=== PATIENT | male | born 1980 | race Two or more races ===

== ENCOUNTER 2025-01-07 19:54 | Emergency (ER) | payer MEDICAID, OTHER ==
[~2025-01-07] VITALS: Ht 180.3 cm; Wt 72.7 kg
[2025-01-07 20:16] LABS: Basophils # (auto) 0.1 10 ^3/uL (0-0.2); Basophils % (auto) 1.4 % (0.0-2.0); Eosinophils # (auto) 0.5 10 ^3/uL (0-0.8); Eosinophils % (auto) 7.7 % (0.0-7.0); Hematocrit 34.2 % (41.0-53.0); Hemoglobin 11.4 g/dL (13.5-17.5); Lymphocytes # (auto) 1.5 10 ^3/uL (0.4-5.4); Lymphocytes % (auto) 25.3 % (10.0-50.0); Mean Corpuscular Hemoglobin 29.1 pg (28.0-32.0); Mean Corpuscular Hgb Conc. 33.5 g/dL (32.0-36.0); Mean Corpuscular Volume 86.9 fL (80.0-100.0); Monocytes # (auto) 0.7 10 ^3/uL (0-1.3); Monocytes % (auto) 11.8 % (0.0-12.0); Neutrophils # (auto) 3.2 10 ^3/uL (1.6-8.6); Neutrophils % (auto) 53.8 % (37.0-80.0); Platelet Count (auto) 289 10^3/uL (140-450); Red Blood Cells 3.93 10^6/uL (4.5-5.90); Red Cell Distribution Width 16.2 % (11.8-14.3); White Blood Cell 5.9 10^3/uL (4.4-10.8)
--- NOTE | 2025-01-07 20:16 | ED.PDOC ---
Psychiatric HPI Comments 44-year-old male came to ER via EMS for mental health issues. Patient has history of schizophrenia, recently discharged at [facility] last Jan 03, and patient hasnt taken his psyche meds since then. Patient left his rehab home, was seen wandering around. Patient believes in government conspiracies, thinks the government is out to catch him and torture him. He admits to have auditory hallucinations, in his been having thoughts of harming himself as well. Chief Complaint: Mental Health Time Seen by MD: 20:14 Reviewed Notes: Travel Guide Notes Information Source: Patient, Emergency Med Personnel Mode of Arrival: EMS Severity: Unable to Care for Self, Unable to Control Self Severity of Pain: Moderate Severity of Mental Status: Moderate Severity of Symptoms: Moderate Timing: Hours Duration: Intermittent Presents with: Anxiety, Unclear Thinking, Bizarre Behavior, Suicidal Ideation Circumstance: Medical Clearance, Causing a Disturbance History of: Schizophrenia Associated signs and symptoms: Hopeless, Anxiety, Anger, Hallucinations, Confusion Review of Systems REVIEW OF SYSTEMS: No fever, no chills, or fatigue HEENT: No sore throat, no earache, no congestion, no neck pain. Cardiac: No chest pain. No palpitations. Lungs: No shortness of breath, no cough. GI: No nausea, no vomiting, no diarrhea, no constipation, no abdominal pain : No dysuria, frequency, or urgency. No hematuria. Musculoskeletal: No joint pain , no joint swelling, no extremity edema. Skin: No rash, no itching. Neuro: No headache, no dizziness, no weakness Vital Signs Vital Signs Date Time Temp Pulse Resp B/P (MAP) Pulse Ox O2 Delivery O2 Flow Rate FiO2 01/07/25 21:48 87 16 99 Room Air* 0 21 01/07/25 21:47 98.4 122/75 (91) 98.4 Physical Exam General: Awake, alert and oriented. No acute distress. Skin: Skin in warm, dry and intact without rashes or lesions. HEENT: The head is normocephalic and atraumatic. Conjunctivae are clear without exudates or hemorrhage. Sclera is non-icteric. Neck: Normal range of motion. No JVD. Cardiac: Regular rate Respiratory: No signs of respiratory distress. No Stridor. Extremities: Upper and lower extremities are atraumatic in appearance without tenderness or deformity. Neurological: The patient is awake, alert and oriented to person, place, and time with normal speech. Speech is clear. There is no facial asymmetry. Psychiatric: Anxious affect. Rapid, pressured, tangential speech. Reporting auditory hallucinations. Past Medical History PAST MEDICAL HISTORY: Schizophrenia Surgical History: Denies all surgeries Family History Family History: Reviewed,noncontributory to illness Social History Smoker: Non-Smoker Alcohol: Denies ETOH Use Drugs: Denies Drug Use Lives In: Other (Rehab home) Was a procedure done? Was a procedure done?: No Psych Differential Dx Psych. Differential Dx: Anxiety, Depression, Hopeless, Panic Disorder, Schizoprenia, Suicidal X-Ray, Labs, Meds, VS Vital Signs Date Time Temp Pulse Resp B/P (MAP) Pulse Ox O2 Delivery O2 Flow Rate FiO2 01/07/25 21:48 87 16 99 Room Air* 0 21 01/07/25 21:47 98.4 87 16 122/75 (91) 99 98.4 01/07/25 20:01 98.4 87 16 122/75 (91) 99 Lab Test 01/08/25 04:41 01/07/25 20:07 Range/Units Urine Color Colorless Yellow Urine Clarity Clear Clear Urine pH 7.0 5.0-9.0 Urine Specific [place] 1.006 1.001-1.035 Urine Protein Negative Negative Urine Ketones Negative Negative Urine Blood Negative Negative /uL Urine Nitrite Negative Negative Urine Bilirubin Negative Negative Urine Urobilinogen Normal Negative mg/dL Urine Leukocyte Esterase Negative Negative /uL Urine RBC <1 0 - 3 /hpf Urine Microscopic WBC 1 0-3 /HPF Urine Squamous Epithelial Cells Few <5 /hpf Urine Bacteria None seen None Seen /hpf Urine Glucose Normal Normal mg/dL Urine Opiates Screen Neg NEGATIVE Urine Fentanyl Screen Neg NEGATIVE Urine Barbiturates Screen Neg NEGATIVE Urine Phencyclidine Screen Neg NEGATIVE Urine Amphetamines Screen Neg NEGATIVE Urine Benzodiazepines Screen Neg NEGATIVE Urine Cocaine Screen Neg NEGATIVE Urine Cannabinoids Screen Neg NEGATIVE White Blood Count 5.9 4.4-10.8 10^3/uL Red Blood Count 3.93 L 4.5-5.90 10^6/uL Hemoglobin 11.4 L 13.5-17.5 g/dL Hematocrit 34.2 L 41.0-53.0 % Mean Corpuscular Volume 86.9 80.0-100.0 fL Mean Corpuscular Hemoglobin 29.1 28.0-32.0 pg Mean Corpuscular Hemoglobin Concent 33.5 32.0-36.0 g/dL Red Cell Distribution Width 16.2 H 11.8-14.3 % Platelet Count 289 140-450 10^3/uL Mean Platelet Volume 7.9 6.9-10.8 fL Neutrophils (%) (Auto) 53.8 37.0-80.0 % Lymphocytes (%) (Auto) 25.3 10.0-50.0 % Monocytes (%) (Auto) 11.8 0.0-12.0 % Eosinophils (%) (Auto) 7.7 H 0.0-7.0 % Basophils (%) (Auto) 1.4 0.0-2.0 % Neutrophils # (Auto) 3.2 1.6-8.6 10 ^3/uL Lymphocytes # (Auto) 1.5 0.4-5.4 10 ^3/uL Monocytes # (Auto) 0.7 0-1.3 10 ^3/uL Eosinophils # (Auto) 0.5 0-0.8 10 ^3/uL Basophils # (Auto) 0.1 0-0.2 10 ^3/uL Nucleated Red Blood Cells 0.0 % Sodium Level 138 136-145 mmol/L Potassium Level 3.9 3.5-5.1 mmol/L Chloride Level 102 98-107 mmol/L Carbon Dioxide Level 31 20-31 mmol/L Anion Gap 5 5-15 Blood Urea Nitrogen 13 9-23 mg/dL Creatinine 0.78 0.700-1.30 mg/dL Glomerular Filtration Rate Calc 111 >90 mL/min BUN/Creatinine Ratio 16.7 10.0-20.0 Serum Glucose 98 74-106 mg/dL Calcium Level 9.2 8.7-10.4 mg/dL Total Bilirubin 0.2 0.2-1.0 mg/dL Aspartate Amino Transferase (AST) 23 13-40 U/L Alanine Aminotransferase (ALT) 15 7-40 U/L Alkaline Phosphatase 118 H 46-116 U/L Total Protein 7.4 5.7-8.2 g/dL Albumin 4.4 3.2-4.8 g/dL Plasma/Serum Blood Alcohol < 3.0 <10 mg/dL Current Medications Medications (Trade) Dose Ordered Sig/To Route Start Time Stop Time Status Last Admin Haloperidol Lactate (Haldol) 5 mg ONCE ONCE IM 01/07/25 20:00 01/07/25 20:01 DC 01/07/25 20:26 Lorazepam (Ativan Inj) 2 mg ONCE ONCE IM 01/07/25 20:00 01/07/25 20:01 DC 01/07/25 20:25 Olanzapine (ZyPREXA Tablet) 5 mg ONCE ONCE PO 01/08/25 00:33 01/08/25 00:51 DC 01/08/25 01:07 Time of 1ST Reevaluation: 20:10 Reevaluation 1ST: Unchanged Patient Education/Counseling: Diagnosis, Treatment Family Education/Counseling: No Family Present Departure 1 Departure Time of Disposition: 01:14 Impression: Primary Impression: Schizophrenia [facility] Condition: Stable Comments 44-year-old male with history of schizophrenia who presents to the ED with severe delusional symptoms, hallucinations and statements of suicidal ideation. Patient medicated on arrival to the ED. Labs, urinalysis, UDS ordered. Psychiatric consult placed. Patient evaluated by Dr. Oates (psychiatry) recommendation is inpatient psychiatric admission for safety, psychiatric stabilization and possible medication initiation/optimization as well as starting olanzapine 5 mg b.i.d. 1st dose now. Signed out to Dr. Shoemaker Pending transfer. Critical Care Note Critical Care Time?: No Stability Stability form required: No Heart Score Heart Score: Heart Score Response (Comments) Value History N/A 0 EKG N/A 0 Age N/A 0 Risk Factors N/A 0 Troponin N/A 0 Total 0 I personally scribed for MYNOR MUHAMMAD MD ([email or web address]) on 01/07/25 at 20:16. Electronically submitted by Matthew Watters ([facility]). MYNOR MUHAMMAD MD Jan 07, 2025 20:16
[2025-01-07] MEDS: LORazepam 2MG/ML-1ML VIAL IM ONE (20:25)
[2025-01-07] MEDS: HALOPERIDOL LACTATE 5 MG/ML INJ VIAL IM ONE (20:26)
[2025-01-07 20:32] LABS: Alanine Aminotransferase 15 U/L (7-40); Albumin 4.4 g/dL (3.2-4.8); Alkaline Phosphatase 118 U/L (46-116); Anion Gap 5 (5-15); Aspartate Aminotransferase 23 U/L (13-40); BUN/Creatinine Ratio 16.7 (10.0-20.0); Blood Alcohol < 3.0 mg/dL (<10); Blood Urea Nitrogen 13 mg/dL (9-23); Calcium 9.2 mg/dL (8.7-10.4); Carbon Dioxide 31 mmol/L (20-31); Chloride 102 mmol/L (98-107); Glucose 98 mg/dL (74-106); Potassium 3.9 mmol/L (3.5-5.1); Sodium 138 mmol/L (136-145); Total Protein 7.4 g/dL (5.7-8.2)
[2025-01-07 20:33] LABS: Bilirubin, Total 0.2 mg/dL (0.2-1.0)
[2025-01-07 21:48] VITALS: PULSE 87; RESP 16; O2SAT 99
--- NOTE | 2025-01-08 00:33 | DVHINCON2 ---
Date of Service if different f: Jan 07, 2025 Time of Service: 23:06 Consult Consult Note PSYCHIATRY ED NEW CONSULT HPI: 44 yo M pt with PPH of depression and schizophrenia presents to ED BIBA for safety, psychiatric stabilization and possible med initiation/optimization in setting of homelessness, med noncompliance, depression, paranoia, and passive SI. Psychiatry consulted for safety evaluation and recommendations in context of current presentation Per pt, p/w moderate thought disorder, confusion, disorganized speech, disorganized TP, paranoia of being persecuted by various govt agencies, RTIS, impaired reality testing, delusional, poor sleep, anxiety, possible decline in self care, passive SI, and NC/NT AVH. 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 Of note, pt recently discharged from [facility] on 01/03 to rehab facility but pt has been med noncompliant and left rehab voluntarily hence is currently homeless/unsheltered Pt currently does not have psychiatrist/therapist out in community although has sought outpt MH services in past. Currently rx'd several antipsychotics pt could not recall and could not confirm on CR but has been noncompliant for past week - appears pt has long hx of med noncompliance and tx non-adherence. Denies ETOH, THC or [employer]. Never , no children, unemployed/SSI, chronically homeless, no support system noted. Unknown trauma hx. Unknown FH. No acute medical issues, hx of seizures/TBI, or recent head injuries, NKDA Does not have hx of suicide attempts/SIB/PSG although multiple prior psych hospitalizations for psychosis. Does not have access to firearms. Currently endorses passive SI/AVH MSE: General Appearance/Behavior: Alert and partially awake; appears bit older stated age, marginal/poor grooming and hygiene; calm and cooperative, intermittent eye contact Speech: not overly spontaneous, incoherent at times Thought Process: impoverished, poverty of thought Thought Content: Abnormal Thoughts and Perceptions: possibly Homicidality / Violent Thoughts: None presently (expressed HI earlier during admission) Suicidality: passive SI Hallucinations: + AVH Delusions:+ persecutory delusions Obsessions /compulsions : None Judgment and Insight: marginal/limited Mood & Affect: "tired" with mood-congruent, appropriate Orientation: oriented to person, place, time Assessment: 44 yo M pt with PPH of depression and schizophrenia presents to ED BIBA for safety, psychiatric stabilization and possible med initiation/optimization in setting of homelessness, med noncompliance, depression, paranoia, and passive SI Pt is currently expressing some SI and psychosis with moderate interference in daily functioning. Not on any psychotropics which maybe contributing to current symptoms. No outpt MH services at present. Recent inpt psych hospitalization for similar symptoms. Pt agrees to talk with staff instead of acting on any suicidal feelings while in ED. Pt medically cleared. Thus, acute risk is moderate and hence is appropriate for inpatient psychiatry admission. Pt will benefit from inpatient psychiatric admission for safety, psychiatric stabilization and possible medication initiation/optimization. Pt willing to transfer to inpt psych hospitalization voluntarily. Consider 5150 hold for DTS ONLY if needed for transfer or if no voluntary beds are available Primary Diagnosis: Schizophrenia, CUT Recommend vol transfer to inpt psych facility for higher level of care per pts request 1:1 sitter is recommended Recommend starting Olanzapine 5 mg bid - first dose now Risks/benefits/alternative treatments discussed, informed consent provided by pt If patient later refuses voluntary hospitalization/ requests to be discharged from ED prior to transfer or if no voluntary beds are available, please pt on 5150 DTS hold. Pt verbalized understanding and is receptive to above tx plan This case was discussed with ED nurse/provider and all parties in agreement with above tx plan Denzel Oates MD Plan discussed with: Patient DENZEL OATES MD Jan 08, 2025 00:33
[2025-01-08] MEDS: OLANZapine 5 MG TAB PO ONE (01:07)
[2025-01-08 04:45] LABS: Urine Bacteria None Seen /hpf (None Seen)
[2025-01-08 04:49] LABS: Urine Blood Negative /uL (Negative); Urine Clarity Clear (Clear); Urine Color Colorless (Yellow); Urine Protein, UAD Negative (Negative); Urine Specific Gravity 1.006 (1.001-1.035); Urine Squamous Epithelial Cell FEW /hpf (<5); Urine Urobilinogen Normal (Negative); Urine WBC 1 /HPF (0-3)
[2025-01-08 05:24] LABS: Amphetamine Screen, Urine Neg (NEGATIVE); Barbiturate Scree,Urine Neg (NEGATIVE); Benzodiazephine Screen, Urine Neg (NEGATIVE); Cannabinoid Screen, Urine Neg (NEGATIVE); Cocaine Screen, Urine Neg (NEGATIVE); Opiate Scree,Urine Neg (NEGATIVE); Phencyclidine Screen, Urine Neg (NEGATIVE)
[2025-01-08 07:30] VITALS: PULSE 72; RESP 16; O2SAT 99
--- NOTE | 2025-01-08 07:51 | ED.PDOC ---
Departure 1 Departure Time of Disposition: 07:50 (Patient is medically cleared. Patient was requesting to leave however outpatient re-evaluated by psychiatry and possibly placed on a hold.) Impression: Primary Impression: Schizophrenia Qualified Codes: F20.9 - Schizophrenia, unspecified Additional Impression: Psychosis Qualified Codes: F29 - Unspecified psychosis not due to a substance or known physiological condition Disposition: [facility] Condition: Serious BERENICE EDWARDS MD Jan 08, 2025 07:51
--- NOTE | 2025-01-08 08:22 | DVHINCON2 ---
Date of Service if different f: Jan 08, 2025 Consultation (LESVIA) Progress: Better Labs Laboratory Tests Test 01/07/25 20:07 01/08/25 04:41 White Blood Count 5.9 10^3/uL (4.4-10.8) Red Blood Count 3.93 10^6/uL (4.5-5.90) Hemoglobin 11.4 g/dL (13.5-17.5) Hematocrit 34.2 % (41.0-53.0) Mean Corpuscular Volume 86.9 fL (80.0-100.0) Mean Corpuscular Hemoglobin 29.1 pg (28.0-32.0) Mean Corpuscular Hemoglobin Concent 33.5 g/dL (32.0-36.0) Red Cell Distribution Width 16.2 % (11.8-14.3) Platelet Count 289 10^3/uL (140-450) Mean Platelet Volume 7.9 fL (6.9-10.8) Neutrophils (%) (Auto) 53.8 % (37.0-80.0) Lymphocytes (%) (Auto) 25.3 % (10.0-50.0) Monocytes (%) (Auto) 11.8 % (0.0-12.0) Eosinophils (%) (Auto) 7.7 % (0.0-7.0) Basophils (%) (Auto) 1.4 % (0.0-2.0) Neutrophils # (Auto) 3.2 10 ^3/uL (1.6-8.6) Lymphocytes # (Auto) 1.5 10 ^3/uL (0.4-5.4) Monocytes # (Auto) 0.7 10 ^3/uL (0-1.3) Eosinophils # (Auto) 0.5 10 ^3/uL (0-0.8) Basophils # (Auto) 0.1 10 ^3/uL (0-0.2) Nucleated Red Blood Cells 0.0 % Sodium Level 138 mmol/L (136-145) Potassium Level 3.9 mmol/L (3.5-5.1) Chloride Level 102 mmol/L (98-107) Carbon Dioxide Level 31 mmol/L (20-31) Anion Gap 5 (5-15) Blood Urea Nitrogen 13 mg/dL (9-23) Creatinine 0.78 mg/dL (0.700-1.30) Glomerular Filtration Rate Calc 111 mL/min (>90) BUN/Creatinine Ratio 16.7 (10.0-20.0) Serum Glucose 98 mg/dL (74-106) Calcium Level 9.2 mg/dL (8.7-10.4) Total Bilirubin 0.2 mg/dL (0.2-1.0) Aspartate Amino Transf (AST/SGOT) 23 U/L (13-40) Alanine Aminotransferase (ALT/SGPT) 15 U/L (7-40) Alkaline Phosphatase 118 U/L (46-116) Total Protein 7.4 g/dL (5.7-8.2) Albumin 4.4 g/dL (3.2-4.8) Plasma/Serum Blood Alcohol < 3.0 mg/dL (<10) Urine Color Colorless (Yellow) Urine Clarity Clear (Clear) Urine pH 7.0 (5.0-9.0) Urine Specific [place] 1.006 (1.001-1.035) Urine Protein Negative (Negative) Urine Ketones Negative (Negative) Urine Blood Negative /uL (Negative) Urine Nitrite Negative (Negative) Urine Bilirubin Negative (Negative) Urine Urobilinogen Normal mg/dL (Negative) Urine Leukocyte Esterase Negative /uL (Negative) Urine RBC <1 /hpf (0 - 3) Urine Microscopic WBC 1 /HPF (0-3) Urine Squamous Epithelial Cells Few /hpf (<5) Urine Bacteria None seen /hpf (None Seen) Urine Glucose Normal mg/dL (Normal) Urine Opiates Screen Neg (NEGATIVE) Urine Fentanyl Screen Neg (NEGATIVE) Urine Barbiturates Screen Neg (NEGATIVE) Urine Phencyclidine Screen Neg (NEGATIVE) Urine Amphetamines Screen Neg (NEGATIVE) Urine Benzodiazepines Screen Neg (NEGATIVE) Urine Cocaine Screen Neg (NEGATIVE) Urine Cannabinoids Screen Neg (NEGATIVE) Appetite: Good Side effects of medications: No Appearance: Stated age Psychomotor activity: WNL Behavioral: Cooperative Eye contact: Appropriate Speech: WNL Affect: Appropriate, Blunted Mood: Euthymic Thought processes: Linear/Goal-directed Thought content: WNL Suicidal ideations: Absent Homicidal ideations: Absent Orientation: Person, Place, Time, Situation Memory intact: Recent Intellect: Average Abstractability: WNL Concentration: Adequate Attention: Adequate Judgement: WNL Insight: Good Vitals Vital Signs Date Time Temp Pulse Resp B/P (MAP) Pulse Ox O2 Delivery O2 Flow Rate FiO2 01/07/25 21:48 87 16 99 Room Air* 0 21 01/07/25 21:47 98.4 122/75 (91) 98.4 Current medications Current Medications Medications Dose Ordered Sig/To Route Start Time Stop Time Status Last Admin Dose Admin Olanzapine 5 mg BID PO 01/08/25 10:00 Treatment plan discussed: With staff Medication adjusted: No Labs ordered: No Psychotherapy provided: No Type: Voluntary Diagnosis: Past diagnosis of schizophrenia. Assessment & Plan : 44 y/o male presents for passive SI, worsening psychosis in the context of losing housing and med non-adherence. Pt gives a reason for these below. Pt's tox screen was -ve for everything and pt was not intoxicated with alcohol either when he came in. Pt says he hasn't used drugs in a long time. He was in some kind of [facility] where psych meds were outlawed and he had to throw his meds away. 4 days into it he started to experience his symptoms returning and he left there in search of help. After having gotten a dose of haldol and ativan IM and zyprexa PO last night, the pt says he feels much better and can think straight, was able to get a good nights sleep, denies SI, HI and AVH. Pt is future oriented and detailed his plans to work with SW and his OP clinic at [facility] to access psych follow-up, meds and housing resources. Based on this eval, the pt appears to be a low risk for harm to self or others and is not psychotic so can be discharged to his own cognizance if medically cleared. Case D/w ED MD who has agreed to re-prescribe the pt's meds based on the info he has in his belongings (Pt doesn't remember the dosages of the meds he takes). History of Present Illness Reason for Consult : Re-eval. Interval HPI : Pt presented yesterday for passive si and AVH, homeless, hx of drug use h omelessness, med noncompliance, depression, paranoia, and passive SI. Pt says that he was living somewhere at a jehovah's witness housing program where they outlaw psychiatric meds. Pt was having a rash. Pt threw away his haldol, cogentin, depakote, trazodone and benadryl. He was off meds for 3 or 4 days. Pt says he is going to [place] and has a plan to f/u with SW at [facility] where he gets OP follow-up. Past Psychiatric History : Schizophrenia. Past Medical History : Denies. Social History : Is homeless, but has a mother who is a support to some extent with emergency fu nds when needed. Assessment/Diagnosis/Plan Reviewed: Consults, Care Plan, Medications MACKENZIE CHING MD Jan 08, 2025 08:22
[2025-01-08 09:00] VITALS: BP 112/76; PULSE 93; RESP 14; TEMP 97.2; O2SAT 100
[2025-01-08] MEDS: OLANZapine 5 MG TAB PO SCH (09:53)
[2025-01-08] MEDS ORDERED: HAL5T PO (11:51)
[2025-01-08] MEDS ORDERED: VALP1CAP4 PO (11:51)
[2025-01-08] MEDS ORDERED: DIPH25CA66 PO (11:51)
[2025-01-08] MEDS ORDERED: BENZ2TAB50 PO (11:51)
[2025-01-08] MEDS ORDERED: HYDR25CA PO (11:51)
--- NOTE | 2025-01-08 11:51 | ED.PDOC ---
Departure 1 Departure Time of Disposition: 11:47 (Patient was re-evaluated by Psychiatry today in recommends patient can be discharged. We will refill patient's medications and discharge patient home.) Impression: Primary Impression: Schizophrenia Qualified Codes: F20.9 - Schizophrenia, unspecified Additional Impression: Psychosis Qualified Codes: F29 - Unspecified psychosis not due to a substance or known physiological condition Disposition: 01 HOME / SELF CARE / HOMELESS Condition: Stable Additional Instructions: Your medications were refilled today. It is important to follow up with your regular doctors. e-Prescriptions Valproic Acid (Valproic Acid) 250 Mg Cap 250 MG PO TID PRN for 30 Days, #90 CAP Prov: BERENICE EDWARDS MD 01/08/25 Hydroxyzine Pamoate (Vistaril) 25 Mg Cap 2 CAP PO TID PRN for 30 Days, #90 CAP Prov: BERENICE EDWARDS MD 01/08/25 Haloperidol (Haldol) 5 Mg Tb 2 TAB PO BID for 30 Days, #120 TAB 1 Refill Prov: BERENICE EDWARDS MD 01/08/25 Diphenhydramine Hcl (Benadryl Allergy) 25 Mg Cap 2 CAP PO QPM for 30 Days, #60 CAP 2 Refills Prov: BERENICE EDWARDS MD 01/08/25 Benztropine Mesylate (Benztropine Mesylate) 2 Mg Tab 1 TAB PO BID for 30 Days, #60 TAB 1 Refill Prov: BERENICE EDWARDS MD 01/08/25 Discharged With: Self BERENICE EDWARDS MD Jan 08, 2025 11:51
== END 2025-01-08 11:51 | disposition home or self-care (01) ==
LOC: EDBD 19:54 → ER 19:54
DX: F20.9 Schizophrenia, unspecified (principal); F29 Unspecified psychosis not due to a substance or known physiological condition; F32.A Depression, unspecified; F41.9 Anxiety disorder, unspecified; Z59.02 Unsheltered homelessness
CPT/HCPCS: 36415; 80053; 80307; 80320; 81001; 85025; 96372; 99284; J1630; J2060